=== PATIENT | female | born 1975 | race Two or more races ===

== ENCOUNTER 2019-06-03 09:35 | Outpatient (CLI) | payer OTHER | END 2019-06-03 09:40 | disposition home or self-care (01) | LOC: NUCLEAR 09:35 | DX: R10.11 Right upper quadrant pain (principal); K52.89 Other specified noninfective gastroenteritis and colitis; R10.30 Lower abdominal pain, unspecified; K59.01 Slow transit constipation | CPT/HCPCS: 78227; A9537 ==

== ENCOUNTER 2025-02-02 19:24 | Inpatient (IN) | payer OTHER ==
[~2025-02-02] VITALS: Ht 167.6 cm; Wt 59.0 kg
[2025-02-02] MEDS ORDERED: ASACOR (19:32)
--- NOTE | 2025-02-02 19:34 | NUR ---
PTE ALERTA Y ORIENTADA X3, REFIERE GAURAV TUVO CAIDA LASTIMANDOSE BRAZO DERECHO. REFIERE MUCHO DOLOR. PTE DEL Y . SE VENTURA SV Y SE UBICA
[2025-02-02] MEDS ORDERED: MORPHINE SULFATE 2 MG/ML CARTRIDGE IV ONE (20:15)
[2025-02-02] MEDS ORDERED: ACETAMINOPHEN 500 MG GEL..CAP PO ONE (20:15)
[2025-02-02] MEDS ORDERED: 0.9 % SODIUM CHLORIDE 1,000 ML IV SCH ×2 (20:15→21:00)
[2025-02-02] MEDS ORDERED: MORPHINE SULFATE 2 MG/ML CARTRIDGE IV PRN (21:00)
[2025-02-02] MEDS ORDERED: ACETAMINOPHEN 500 MG GEL..CAP PO PRN (21:00)
--- NOTE | 2025-02-02 21:30 | NUR ---
SE REALIZAN LAB Y SE ORIENTA A PTE QUIEN REFIERE ENTENDER Y ACEPTAR. SE ENTREGA PENDIENTES A ROCKY DAIGLE.
[2025-02-02 21:38] LABS: HEMATOCRIT 42.8 % (36.0-45.00); HEMOGLOBIN 14.6 g/dL (12.0-15.00); MEAN CELL VOLUME 93.4 fL (80.00-100.00); MEAN CORPUSCULAR HEMOGLOBIN 31.9 pg (27.00-32.0); MEAN CORPUSCULAR HGB CONC 34.1 g/dl (32.0-36.0); PLATELET COUNT 360 K/uL (150-450); RED BLOOD COUNT 4.58 M/uL (4.00-6.00); RED CELL DISTRIBUTION WIDTH 13.3 % (11.5-14.5)
[2025-02-02 21:48] LABS: PH,URINE 5.5 (5.0-8.0); URINE APPEARANCE Clear; URINE BILIRRUBIN Negative (NEGATIVE); URINE BLOOD Large; URINE COLOR Dark Yellow; URINE GLUCOSE Negative (NEGATIVE); URINE KETONE Trace (NEGATIVE); URINE LEUKOCYTE Trace; URINE NITRATE Negative
[2025-02-02 21:54] LABS: URINE BACTERIA 397.7 uL (0.0-1933); URINE EPITHELIAL CELLS 55.2 uL (0.0-38.8); URINE RBC 129.1 uL (0.0-20.8); URINE WBC 94.4 uL (0.0-23.2)
[2025-02-02 21:58] LABS: ALBUMIN 4.2 gm/dL (3.4-5.0); BILIRUBIN TOTAL 0.35 mg/dL (0.3-1.2); CALCIUM 9.4 mg/dL (8.5-10.1); CREATININE SERUM 1.32 mg/dL (0.55-1.02); GFR 42.95; GLOBULINA 4.6 G/DL (2.4-3.5); INR 1.01; PARTIAL THROMBOPLASTIN TIME 26.5 SECONDS (22.0-34.0); POTASSIUM 3.42 mEq/L (3.5-5.1); TOTAL PROTEIN 8.8 gm/dL (6.4-8.2)
[2025-02-02 22:04] LABS: URINE CAST 1.32 uL (0.0-1.40); URINE CRYSTALS FEW /HPF; URINE PROTEIN 100 (NEGATIVE)
[2025-02-02 22:18] LABS: COL EPI 171 SECONDS (82-175)
[2025-02-02] MEDS ORDERED: POTASSIUM CHLORIDE 20MEQ/100ML H2O PB IV ONE (23:15)
[2025-02-02] MEDS ORDERED: KETOROLAC TROMETHAMINE 30 MG VIAL IV ONE (23:45)
[2025-02-03 06:31] LABS: ALBUMIN 3.1 gm/dL (3.4-5.0); BILIRUBIN TOTAL 0.55 mg/dL (0.3-1.2); CALCIUM 8.2 mg/dL (8.5-10.1); CREATININE SERUM 0.94 mg/dL (0.55-1.02); GFR 63.56; GLOBULINA 3.4 G/DL (2.4-3.5); POTASSIUM 3.65 mEq/L (3.5-5.1); TOTAL PROTEIN 6.5 gm/dL (6.4-8.2)
[2025-02-03] MEDS ORDERED: MORPHINE SULFATE 4 MG/ML CARTRIDGE IV PRN (08:23)
[2025-02-03] MEDS ORDERED: MESALAMINE 400 MG CAP.DRTAB. PO SCH (09:00)
[2025-02-03] MEDS ORDERED: FAMOTIDINE/PF 20 MG in 0.9 % SODIUM CHLORIDE 8 ML IV PUSH SCH (09:00)
[2025-02-03] MEDS ORDERED: PANTOPRAZOLE SODIUM 40 MG/VIAL VIAL IV SCH (09:00)
[2025-02-03] MEDS ORDERED: ONDANSETRON 4 MG TAB.RAPDIS PO PRN (12:30)
[2025-02-03] MEDS ORDERED: ONDANSETRON HCL 2 MG/ML VIAL IV PRN (12:30)
[2025-02-03] MEDS ORDERED: MEPERIDINE HCL/PF 50 MG/ML VIAL IM PRN (12:30)
[2025-02-03] MEDS ORDERED: SODIUM CHLORIDE 0.45 % 1,000 ML IV SCH (12:30)
[2025-02-03] MEDS ORDERED: TRAMADOL HCL 50 MG TABLET PO PRN (12:30)
[2025-02-03] MEDS ORDERED: PROMETHAZINE HCL 50 MG/ML AMPUL IM PRN (12:30)
[2025-02-03] MEDS ORDERED: KETOROLAC TROMETHAMINE 10 MG TABLET PO SCH (13:00)
[2025-02-03] MEDS ORDERED: CELECOXIB 200 MG CAPSULE PO SCH (13:00)
[2025-02-03] MEDS ORDERED: MORPHINE SULFATE 4 MG/ML VIAL IV ONE ×2 (13:05→15:05)
[2025-02-03] MEDS ORDERED: CEFAZOLIN SODIUM 1,000 MG VIAL IV ONE (13:15)
[2025-02-03] MEDS ORDERED: BUPIVACAINE HCL 30 ML VIAL IJ ONE (13:15)
[2025-02-03] MEDS ORDERED: CEFAZOLIN SODIUM 1,000 MG VIAL IV SCH (17:00)
[2025-02-03 22:32] VITALS: BP 119/77; O2SAT 100
== END 2025-02-03 17:10 | disposition home or self-care (01) | DRG 502 ==
LOC: ER 19:26 → SEC-K 22:11 → O/R 22:11 → MEDJ 02-03 00:44 → SEC-K 02-03 01:24 → O/R 02-03 11:30
PROVIDERS: General Practice; ADMIT Internal Medicine; ATTEND Internal Medicine
PROC: 0L850ZZ Division of Right Lower Arm and Wrist Tendon, Open Approach (ICD-10-PCS; principal; 2025-02-02)
PROC: 0PSH04Z Reposition Right Radius with Internal Fixation Device, Open Approach (ICD-10-PCS; 2025-02-02)
PROC: 0PUH0JZ Supplement Right Radius with Synthetic Substitute, Open Approach (ICD-10-PCS; 2025-02-02)
DX: S52.571A Other intraarticular fracture of lower end of right radius, initial encounter for closed fracture (principal); M62.431 Contracture of muscle, right forearm; W01.10XA Fall on same level from slipping, tripping and stumbling with subsequent striking against unspecified object, initial encounter; Y93.9 Activity, unspecified; Y92.9 Unspecified place or not applicable; Y99.9 Unspecified external cause status

== ENCOUNTER 2025-03-02 12:28 | Outpatient (CLI) | payer OTHER ==
[~2025-03-02 12:28] MED LIST: ASACOR; CELEBREX50 MG PO; PREGABALIN50 MG PO; VOLTAREN ARTHRI20 GM TOP
== END 2025-03-02 12:38 | disposition home or self-care (01) ==
LOC: RAD 12:28
PROVIDERS: ATTEND Orthopaedic Surgery
DX: S52.571D Other intraarticular fracture of lower end of right radius, subsequent encounter for closed fracture with routine healing (principal); G90.511 Complex regional pain syndrome I of right upper limb

== ENCOUNTER 2025-03-24 14:59 | Outpatient (CLI) | payer OTHER | END 2025-03-24 15:19 | disposition home or self-care (01) | LOC: RAD 14:59 | PROVIDERS: ATTEND Orthopaedic Surgery | DX: M25.521 Pain in right elbow (principal) ==

== ENCOUNTER 2025-06-25 12:19 | Outpatient (CLI) | payer OTHER | END 2025-06-25 12:25 | disposition home or self-care (01) | LOC: RAD 12:19 | PROVIDERS: ATTEND Orthopaedic Surgery | DX: S52.571D Other intraarticular fracture of lower end of right radius, subsequent encounter for closed fracture with routine healing (principal); G90.511 Complex regional pain syndrome I of right upper limb ==